=== PATIENT | male | born 1945 | race Caucasian/White ===

== ENCOUNTER 2018-06-12 09:01 | Outpatient (REF) | payer MEDICARE, OTHER, SELFPAY ==
[2018-06-12 23:23] LABS: Cholesterol 259 mg/dL (50-200); HDL Cholesterol 62 mg/dL (40-60); LDL CHOLESTEROL 177 mg/dL (<100); TSH 1.08 uIU/mL (0.358-3.74); Triglyceride 116 mg/dL (30-150); Vitamin B12 719 pg/mL (193-986)
== END 2018-06-12 09:21 ==
LOC: NCHCN 09:01
PROVIDERS: PCP Family Medicine; Visit Provider Internal Medicine
DX: E53.8 Deficiency of other specified B group vitamins (principal); E03.9 Hypothyroidism, unspecified; Z13.220 Encounter for screening for lipoid disorders
CPT/HCPCS: 80061; 83721; 82607; 84443

== ENCOUNTER 2018-07-28 15:58 | Outpatient (REF) | payer MEDICARE, OTHER, SELFPAY ==
[2018-07-28 20:55] LABS: Anion Gap 9.6 mmol/L (3-11); BUN 20 mg/dL (7-18); CO2 29.4 mmol/L (21.0-32.0); CREATININE 1.25 mg/dL (0.70-1.30); Calcium 9.6 mg/dL (8.5-10.1); Chloride 104 mmol/L (98-107); Glucose 94 mg/dL (70-100); Potassium 5.4 mmol/L (3.5-5.1); Sodium 143 mmol/L (136-145)
== END 2018-07-28 16:18 ==
LOC: NCHCN 15:58
PROVIDERS: PCP Family Medicine; Visit Provider Internal Medicine
DX: I10 Essential (primary) hypertension (principal)
CPT/HCPCS: 80048

== ENCOUNTER 2018-12-11 11:19 | Outpatient (REF) | payer MEDICARE, SELFPAY ==
[2018-12-11 21:43] LABS: Anion Gap 11.4 mmol/L (3-11); BUN 42 mg/dL (7-18); CO2 24.6 mmol/L (21.0-32.0); CREATININE 1.65 mg/dL (0.70-1.30); Calcium 9.9 mg/dL (8.5-10.1); Chloride 102 mmol/L (98-107); Estimated GFR 41.33 (mL/min/1.73m2); Glucose 90 mg/dL (70-100); Potassium 4.9 mmol/L (3.5-5.1); Sodium 138 mmol/L (136-145)
== END 2018-12-11 11:39 ==
LOC: NCHCN 11:19
PROVIDERS: PCP Family Medicine; Visit Provider Internal Medicine
DX: I10 Essential (primary) hypertension (principal)
CPT/HCPCS: 80048

== ENCOUNTER 2018-12-20 11:10 | Outpatient (REF) | payer MEDICARE, OTHER, SELFPAY ==
[2018-12-20 21:44] LABS: Anion Gap 11.2 mmol/L (3-11); BUN 30 mg/dL (7-18); CO2 29.8 mmol/L (21.0-32.0); CREATININE 1.31 mg/dL (0.70-1.30); Calcium 10.1 mg/dL (8.5-10.1); Chloride 98 mmol/L (98-107); Estimated GFR 53.94 (mL/min/1.73m2); Glucose 102 mg/dL (70-100); Potassium 3.6 mmol/L (3.5-5.1); Sodium 139 mmol/L (136-145)
== END 2018-12-20 11:30 ==
LOC: NCHCN 11:10
PROVIDERS: PCP Family Medicine; Visit Provider Internal Medicine
DX: I10 Essential (primary) hypertension (principal)
CPT/HCPCS: 80048

== ENCOUNTER 2018-12-28 13:53 | Outpatient (REF) | payer MEDICARE, OTHER, SELFPAY ==
[2018-12-29 12:15] LABS: Anion Gap 12.2 mmol/L (3-11); BUN 22 mg/dL (7-18); CO2 28.8 mmol/L (21.0-32.0); CREATININE 1.34 mg/dL (0.70-1.30); Calcium 9.1 mg/dL (8.5-10.1); Chloride 101 mmol/L (98-107); Estimated GFR 52.55 (mL/min/1.73m2); Glucose 105 mg/dL (70-100); Potassium 3.4 mmol/L (3.5-5.1); Sodium 142 mmol/L (136-145)
== END 2018-12-28 14:13 ==
LOC: NCHCN 13:53
PROVIDERS: PCP Family Medicine; Visit Provider Internal Medicine
DX: I10 Essential (primary) hypertension (principal)
CPT/HCPCS: 80048

== ENCOUNTER 2019-01-10 10:43 | Outpatient (REF) | payer MEDICARE, OTHER, SELFPAY ==
[2019-01-10 22:42] LABS: Anion Gap 8.4 mmol/L (3-11); BUN 20 mg/dL (7-18); CO2 27.6 mmol/L (21.0-32.0); CREATININE 1.18 mg/dL (0.70-1.30); Calcium 9.7 mg/dL (8.5-10.1); Chloride 106 mmol/L (98-107); Glucose 91 mg/dL (70-100); Potassium 5.1 mmol/L (3.5-5.1); Sodium 142 mmol/L (136-145)
== END 2019-01-10 11:03 ==
LOC: NCHCN 10:43
PROVIDERS: PCP Family Medicine; Visit Provider Internal Medicine
DX: I10 Essential (primary) hypertension (principal)
CPT/HCPCS: 80048

== ENCOUNTER 2019-03-02 11:46 | Outpatient (REF) | payer MEDICARE, OTHER, SELFPAY ==
[2019-03-02 20:41] LABS: HCT 43.2 % (40.0-50.0); HGB 14.8 g/dL (13.5-17.5); Mean Corp. HGB Concentration 34.3 g/dL (32.0-36.0); Mean Corpuscular Hemoglobin 33.2 pg (27.0-33.0); Mean Corpuscular Volume 96.9 fL (80-95); Platelet Count 212 x1000/uL (130-400); RBC 4.46 m/cumm (4.50-6.00); RBC Distribution Width 13.4 % (11.8-14.1)
[2019-03-02 20:53] LABS: Anion Gap 11.3 mmol/L (3-11); BUN 21 mg/dL (7-18); CO2 26.7 mmol/L (21.0-32.0); CREATININE 1.05 mg/dL (0.70-1.30); Chloride 105 mmol/L (98-107); Glucose 79 mg/dL (70-100); Potassium 4.7 mmol/L (3.5-5.1); Sodium 143 mmol/L (136-145)
[2019-03-02 22:42] LABS: ESR 12 mm/hr (1-20)
== END 2019-03-02 12:06 ==
LOC: NCHCN 11:46
PROVIDERS: PCP Family Medicine; Visit Provider Nurse Practitioner Family
DX: R53.83 Other fatigue (principal); M19.90 Unspecified osteoarthritis, unspecified site
CPT/HCPCS: 80048; 85027; 85652

== ENCOUNTER 2020-02-11 08:45 | Outpatient (REF) | payer MEDICARE, OTHER, SELFPAY ==
[2020-02-11 21:03] LABS: Anion Gap 9.4 mmol/L (3-11); BUN 15 mg/dL (7-18); CO2 26.6 mmol/L (21.0-32.0); CREATININE 1.02 mg/dL (0.70-1.30); Calcium 8.9 mg/dL (8.5-10.1); Chloride 106 mmol/L (98-107); Glucose 108 mg/dL (74-106); Potassium 4.3 mmol/L (3.5-5.1); Sodium 142 mmol/L (136-145); Uric Acid 5.5 mg/dL (3.5-7.2)
[2020-02-12 14:43] LABS: TSH 0.78 uIU/mL (0.36-3.74)
== END 2020-02-11 09:05 ==
LOC: NCHCN 08:45
PROVIDERS: PCP Family Medicine; Visit Provider Internal Medicine
DX: E03.9 Hypothyroidism, unspecified (principal); M25.561 Pain in right knee; M10.9 Gout, unspecified
CPT/HCPCS: 80048; 84443; 84550

== ENCOUNTER 2021-08-12 11:54 | Outpatient (REF) | payer MEDICARE, OTHER, SELFPAY ==
[2021-08-12 15:18] LABS: ALT 71 U/L (16-63); AST 60 U/L (15-37); Albumin 4.4 g/dL (3.4-5.0); Alkaline Phosphatase 94 U/L (46-116); Anion Gap 10.3 mmol/L (3-11); BUN 16 mg/dL (7-18); Bilirubin, Total 0.5 mg/dL (0.2-1.0); CO2 26.7 mmol/L (21.0-32.0); CREATININE 0.9 mg/dL (0.70-1.30); Calcium 9.4 mg/dL (8.5-10.1); Chloride 103 mmol/L (98-107); Glucose 90 mg/dL (74-106); Potassium 4.3 mmol/L (3.5-5.1); Sodium 140 mmol/L (136-145); TSH 2.24 uIU/mL (0.36-3.74); Total Protein 7.5 g/dL (6.4-8.2); Uric Acid 4.3 mg/dL (3.5-7.2)
[2021-08-12 22:23] LABS: PSA, Screening 1.5 ng/mL (0.0-6.5)
[2021-08-15 13:06] LABS: Testosterone, Free 3.38 ng/dL (3.28-12.2); Testosterone, Total 188 ng/dL (240-950)
== END 2021-08-12 11:55 | disposition home or self-care (01) ==
LOC: NCHCN 11:54
PROVIDERS: PCP Family Medicine; Visit Provider Internal Medicine
DX: E03.9 Hypothyroidism, unspecified (principal); Z12.5 Encounter for screening for malignant neoplasm of prostate; E29.1 Testicular hypofunction; M10.9 Gout, unspecified
CPT/HCPCS: 80053; 84153; 84402; 84403; 84443; 84550

== ENCOUNTER 2021-09-11 15:16 | Outpatient (REF) | payer MEDICARE, OTHER, SELFPAY ==
[2021-09-11 21:20] LABS: Abs Immature Grans 0.01 10^3/uL (0.0-0.06); Absolute Basophil Count 0.06 10^3/uL (0.0-0.2); Absolute Eosinophil Count 0.46 10^3/uL (0.0-0.7); Absolute Lymphocyte Count 1.72 10^3/uL (1.2-3.4); Absolute Monocyte Count 0.76 10^3/uL (0.1-0.8); Absolute Neutrophil Count 4.31 10^3/uL (1.2-6.7); Basophils % 0.8; Eosinophils % 6.3; HCT 43.9 % (40.0-50.0); HGB 14.8 g/dL (13.5-17.5); Immature Grans % 0.1; Lymphocytes % 23.5; MCH 32.7 pg (27.0-33.0); MCHC 33.7 % (32.0-36.0); MCV 96.9 fL (80-95); MPV 11.5 fL (8.0-11.0); Monocytes % 10.4; Neutrophils % 58.9; Nucleated RBC 0 %; Platelet Count 288 10^3/uL (130-400); RBC 4.53 10^6/uL (4.36-5.78); RDW 12.8 % (11.8-14.1); RDW-SD 45.7 fL; WBC 7.32 10^3/uL (4.4-10.8)
[2021-09-11 21:32] LABS: ALT 73 U/L (16-63); AST 43 U/L (15-37); Albumin 4.3 g/dL (3.4-5.0); Alkaline Phosphatase 87 U/L (46-116); Bilirubin, Direct 0.1 mg/dL (0.0-0.2); Bilirubin, Total 0.3 mg/dL (0.2-1.0)
[2021-09-14 12:02] LABS: Hepatitis A Antibody IgM Negative (Negative); Hepatitis B Core Antibody Negative (Negative); Hepatitis B surface Ag Negative (Negative); Hepatitis C Ab w Rflx HCV PCR Negative (Negative)
== END 2021-09-11 15:17 | disposition home or self-care (01) ==
LOC: NCHCN 15:16
PROVIDERS: PCP Family Medicine; Visit Provider Internal Medicine
DX: R94.5 Abnormal results of liver function studies (principal)
CPT/HCPCS: 80076; 86704; 86709; 86803; 87340; 85025

== ENCOUNTER 2021-12-18 19:09 | Outpatient (REF) | payer MEDICARE, OTHER, SELFPAY ==
[2021-12-18 20:26] LABS: Anion Gap 11.8 mmol/L (3-11); BUN 17 mg/dL (7-18); CO2 26.2 mmol/L (21.0-32.0); CREATININE 1.1 mg/dL (0.70-1.30); Calcium 9.4 mg/dL (8.5-10.1); Chloride 93 mmol/L (98-107); Glucose 112 mg/dL (74-106); Potassium 4.2 mmol/L (3.5-5.1); Sodium 131 mmol/L (136-145)
== END 2021-12-18 19:10 | disposition home or self-care (01) ==
LOC: NCHCN 19:09
PROVIDERS: PCP Family Medicine; Visit Provider Nurse Practitioner Family
DX: I10 Essential (primary) hypertension (principal)
CPT/HCPCS: 80048

== ENCOUNTER 2023-10-24 22:30 | Outpatient (REF) | payer MEDICARE, OTHER, SELFPAY ==
[2023-11-03 14:33] LABS: Testosterone, Free 5.02 ng/dL (3.08-11.3); Testosterone, Total 234 ng/dL (240-950)
== END 2023-10-24 22:31 | disposition home or self-care (01) ==
LOC: NCHCN 22:30
PROVIDERS: PCP Family Medicine; Visit Provider Internal Medicine
DX: E29.1 Testicular hypofunction (principal); M10.9 Gout, unspecified
CPT/HCPCS: 84402; 84403; 84550

== ENCOUNTER 2024-04-26 08:44 | Outpatient (REF) | payer MEDICARE, OTHER, SELFPAY ==
[2024-04-26 21:28] LABS: HCT 43.3 % (40.0-50.0); HGB 14.5 g/dL (13.5-17.5); MCH 31.5 pg (27.0-33.0); MCHC 33.5 % (32.0-36.0); MCV 94 fL (80-95); MPV 10.9 fL (8.0-11.0); Platelet Count 296 10^3/uL (130-400); RDW 13.7 % (11.8-14.1); WBC 8.57 10^3/uL (4.4-10.8)
[2024-04-26 22:24] LABS: ALT 15 U/L (16-63); AST 26 U/L (15-37); Albumin 4.6 g/dL (3.4-5.0); Alkaline Phosphatase 93 U/L (46-116); BUN 23 mg/dL (7-18); Bilirubin, Total 0.65 mg/dL (0.2-1.0); CREATININE 1.5 mg/dL (0.70-1.30); Calcium 9.7 mg/dL (8.5-10.1); Chloride 105 mmol/L (98-107); Estimated GFR 47.95 (mL/min/1.73m2); Glucose 88 mg/dL (74-106); Potassium 4.8 mmol/L (3.5-5.1); Sodium 144 mmol/L (136-145); TSH 1.03 uIU/mL (0.36-3.74); Total Protein 7.8 g/dL (6.4-8.2); Vitamin B12 1003 pg/mL (193-986)
[2024-04-26 22:34] LABS: Uric Acid 7.7 mg/dL (3.5-7.2)
== END 2024-04-26 08:45 | disposition home or self-care (01) ==
LOC: NCHCN 08:44
PROVIDERS: PCP Family Medicine; Visit Provider Internal Medicine
DX: I10 Essential (primary) hypertension (principal)
CPT/HCPCS: 80053; 85027; 82607; 84443; 84550